=== PATIENT | female | born 1955 | race Caucasian/White ===

== ENCOUNTER 2021-05-26 20:52 | Emergency (ER) | payer MEDICARE ==
[~2021-05-26] VITALS: Ht 157.4 cm; Wt 54.4 kg
== END 2021-05-27 02:25 | disposition home or self-care (01) ==
LOC: ED 20:52
DX: S61.411A Laceration without foreign body of right hand, initial encounter (principal); Z88.0 Allergy status to penicillin; W26.8XXA Contact with other sharp object(s), not elsewhere classified, initial encounter; Y93.89 Activity, other specified; Y92.89 Other specified places as the place of occurrence of the external cause; Y99.8 Other external cause status

== ENCOUNTER 2023-10-06 17:05 | Emergency (ER) | payer OTHER ==
[~2023-10-06] VITALS: Wt 50.3 kg
[2023-10-06 18:18] LABS: BASO % 0.5 % (0.0-1.0); EOS # 0.1 10*3/uL (0.0-0.4); EOS % 1.3 % (1.0-4.0); HEMATOCRIT 49.9 % (37.0-47.0); LYMPH % 25.7 % (27.0-41.0); MEAN CELL VOLUME 89.9 fl (81.0-99.0); MEAN CORPUSCULAR HGB 28.6 pg (27.0-31.0); MEAN CORPUSCULAR HGB CONC 31.9 g/dl (33.0-37.0); MEAN PLATELET VOLUME 10.9 fl (9.6-12.3); MONO # 0.6 10*3/uL (0.1-1.0); MONO % 7.7 % (3.0-9.0); NEUT # 4.9 10*3/uL (2.3-7.9); NEUT % 64.4 % (47.0-73.0); PLATELET COUNT AUTOMATED 208 10*3/uL (130-400); RED BLOOD COUNT 5.55 10*6/uL (4.10-5.10); RED CELL DISTRI WIDTH 13.2 % (0-14.5); WHITE BLOOD COUNT 7.6 10*3/uL (4.8-10.8)
[2023-10-06 18:33] LABS: ACT PARTIAL THROMBO TIME 27.3 SECONDS (20.0-32.1)
[2023-10-06 18:42] LABS: ALKALINE PHOSPHATASE 72 U/L (46-116); BUN 17 mg/dl (9-23); CHLORIDE 107 mmol/L (98-107); POTASSIUM 4.5 mmol/L (3.4-5.1); SGPT/ALT 23 U/L (5-49); TOTAL PROTEIN 7.2 gm/dL (6.0-8.0)
[2023-10-06] MEDS ORDERED: AVPAK AZITHROM250 M1 PO (19:05)
[2023-10-06] MEDS ORDERED: PREDNISONE20 M1 PO (19:05)
== END 2023-10-06 19:24 | disposition home or self-care (01) ==
LOC: ED 17:05
PROVIDERS: Nurse Practitioner Family
DX: J40 Bronchitis, not specified as acute or chronic (principal); Z88.0 Allergy status to penicillin; F17.210 Nicotine dependence, cigarettes, uncomplicated

== ENCOUNTER 2024-05-21 13:34 | Observation (INO) | payer OTHER ==
[~2024-05-21] VITALS: Ht 152.4 cm; Wt 51.3 kg
[~2024-05-21 13:34] MED LIST: AVPAK AZITHROM250 M1 PO; PREDNISONE20 M1 PO
[2024-05-21 13:36] VITALS: BP 132/92
[2024-05-21 13:57] LABS: BASO % 0.7 % (0.0-1.0); EOS # 0.1 10*3/uL (0.0-0.4); EOS % 1.8 % (1.0-4.0); HEMATOCRIT 46.9 % (37.0-47.0); LYMPH # 1.6 10*3/uL (1.3-4.4); MEAN CELL VOLUME 91.8 fl (81.0-99.0); MEAN CORPUSCULAR HGB 29.7 pg (27.0-31.0); MEAN CORPUSCULAR HGB CONC 32.4 g/dl (33.0-37.0); MEAN PLATELET VOLUME 10.9 fl (9.6-12.3); MONO # 0.5 10*3/uL (0.1-1.0); MONO % 9.7 % (3.0-9.0); NEUT # 3.2 10*3/uL (2.3-7.9); NEUT % 58.6 % (47.0-73.0); PLATELET COUNT AUTOMATED 180 10*3/uL (130-400); RED BLOOD COUNT 5.11 10*6/uL (4.10-5.10); RED CELL DISTRI WIDTH 13.1 % (0-14.5); WHITE BLOOD COUNT 5.5 10*3/uL (4.8-10.8)
[2024-05-21 14:09] LABS: ACT PARTIAL THROMBO TIME 25.9 SECONDS (20.0-32.1)
[2024-05-21 14:16] VITALS: BP 146/76
[2024-05-21] MEDS ORDERED: NAPROXEN500 MG PO (14:22)
[2024-05-21] MEDS ORDERED: OXYCODONE-ACET1 EACH PO (14:22)
[2024-05-21] MEDS ORDERED: ROSUVASTATIN CA20 MG PO (14:22)
[2024-05-21 14:28] LABS: ALKALINE PHOSPHATASE 65 U/L (46-116); BUN 10 mg/dl (9-23); CHLORIDE 108 mmol/L (98-107); POTASSIUM 3.8 mmol/L (3.4-5.1); SGPT/ALT 28 U/L (5-49); TOTAL PROTEIN 6.9 gm/dL (6.0-8.0)
[2024-05-21] MEDS ORDERED: Acetaminophen/Oxycodone 5 MG/325 MG TABLET PO ONE (14:35)
[2024-05-21 14:51] VITALS: BP 149/77
[2024-05-21 15:27] VITALS: BP 149/84
[2024-05-21 16:56] VITALS: BP 150/72
[2024-05-21] MEDS ORDERED: BISACODYL 10 MG SUPP R PRN (17:25)
[2024-05-21] MEDS ORDERED: BISACODYL 5 MG TAB PO PRN (17:25)
[2024-05-21] MEDS ORDERED: MORPHINE Sulfate 2 MG/ML SYR IV PRN (17:25)
[2024-05-21] MEDS ORDERED: Magnesium Hydroxide 30 ML UDC PO PRN (17:25)
[2024-05-21] MEDS ORDERED: Ondansetron Hydrochloride 4 MG/2 ML VIAL IV PRN (17:25)
[2024-05-21] MEDS ORDERED: ACETAMINOPHEN 650 MG SUPP R PRN (17:25)
[2024-05-21] MEDS ORDERED: ACETAMINOPHEN 325 MG TAB PO PRN (17:25)
[2024-05-21] MEDS ORDERED: ASPIRIN CHEWABL81 MG PO (17:26)
[2024-05-21] MEDS ORDERED: ALENDRONATE SOD70 M1 PO (17:26)
[2024-05-21] MEDS ORDERED: Technetium Tc 99M Tetrofosmi 0.23 MG KIT IJ SCH (17:55)
[2024-05-21] MEDS ORDERED: Acetaminophen/Hydrocodone ES 7.5/325 tablet PO PRN (19:00)
[2024-05-21 20:31] VITALS: BP 137/63
[2024-05-21] MEDS ORDERED: ATORVASTATIN CALCIUM 40 MG TABLET PO SCH (22:00)
[2024-05-22 02:07] VITALS: BP 112/48
[2024-05-22] MEDS ORDERED: Regadenoson 0.4 MG/5 ML SYR IV ONE (05:51)
[2024-05-22 06:25] LABS: BASO # 0.1 10*3/uL (0.0-0.1); BASO % 0.9 % (0.0-1.0); EOS # 0.2 10*3/uL (0.0-0.4); EOS % 4.2 % (1.0-4.0); HEMATOCRIT 44.1 % (37.0-47.0); LYMPH # 1.8 10*3/uL (1.3-4.4); LYMPH % 33.5 % (27.0-41.0); MEAN CORPUSCULAR HGB 30.2 pg (27.0-31.0); MEAN CORPUSCULAR HGB CONC 33.6 g/dl (33.0-37.0); MEAN PLATELET VOLUME 10.9 fl (9.6-12.3); MONO # 0.7 10*3/uL (0.1-1.0); MONO % 11.8 % (3.0-9.0); NEUT # 2.7 10*3/uL (2.3-7.9); NEUT % 49.2 % (47.0-73.0); PLATELET COUNT AUTOMATED 163 10*3/uL (130-400); RED CELL DISTRI WIDTH 13.1 % (0-14.5); WHITE BLOOD COUNT 5.5 10*3/uL (4.8-10.8)
[2024-05-22 06:40] VITALS: BP 121/65
[2024-05-22 06:51] LABS: BUN 12 mg/dl (9-23); CHLORIDE 109 mmol/L (98-107); CHOLESTEROL 125 mg/dL (<200); FREE T4 1.14 ng/dl (0.89-1.76); LDL CHOLESTEROL 49 mg/dL (9-159); POTASSIUM 3.8 mmol/L (3.4-5.1); TRIGLYCERIDES 95 mg/dl (<150)
[2024-05-22 07:18] LABS: VITAMIN D, 25-HYDROXY 58.2 ng/mL (30-100)
[2024-05-22] MEDS ORDERED: ASPIRIN, CHEWABLE 81 MG TAB PO SCH (10:00)
[2024-05-22] MEDS ORDERED: Enoxaparin Sodium 40 MG/0.4 ML SYR SC SCH (10:00)
[2024-05-22] MEDS ORDERED: AMINOPHYLLINE 250 MG/10 ML VIAL IV ONE (10:38)
[2024-05-22 14:40] VITALS: BP 131/77
[2024-05-22] MEDS ORDERED: Acetaminophen/Hydrocodone ES 7.5/325 tablet PO PRN (15:55)
== END 2024-05-22 20:41 | disposition home or self-care (01) ==
LOC: ED 13:34 → EDHOLD 17:18
PROVIDERS: Internal Medicine; ADMIT Internal Medicine; ATTEND Internal Medicine
DX: R07.89 Other chest pain (principal); M81.0 Age-related osteoporosis without current pathological fracture; M54.9 Dorsalgia, unspecified; G89.29 Other chronic pain; E78.00 Pure hypercholesterolemia, unspecified; F17.210 Nicotine dependence, cigarettes, uncomplicated; Z78.9 Other specified health status; Z79.899 Other long term (current) drug therapy